=== PATIENT | female | born 1965 | race Caucasian/White ===

== ENCOUNTER 2016-08-14 17:59 | Inpatient (IN) | payer OTHER, MEDICARE ==
[~2016-08-14] VITALS: Ht 163.8 cm; Wt 68.0 kg
[~2016-08-14 17:59] MED LIST: ALPRAZOLAM0.5 M3 PO; ALPRAZOLAM1 MG PO; BACTRIM DS 8001 TAB PO; BENZTROPINE1 MG PO; CLOMIPRAMINE HC50 MG PO; CLONIDINE HCL0.1 MG PO; DIVALPROEX SOD500 MG PO; DOLOPHINE10 MG PO; GABAPENTIN300 MG PO; PROMETHAZINE HC25 M3 PO
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
--- NOTE | 2016-08-14 18:39 | NUR ---
LABS DRAWN AND SENT BY THIS [facility]ST. BLUE,SST,LAV, URINE TRIO ALSO SENT AT THIS TIME.
[2016-08-14 18:45] LABS: ABSOLUTE BASOPHIL COUNT 0.1 /CUMM (0.0-0.2); ABSOLUTE EOSINOPHIL COUNT 0.3 /CUMM (0.0-0.7); ABSOLUTE GRANULOCYTE CT 5.4 /CUMM (1.4-6.5); ABSOLUTE LYMPH COUNT 3.7 /CUMM (1.2-3.4); ABSOLUTE MONOCYTE COUNT 0.5 /CUMM (0.10-0.60); BASOPHIL % 0.6 % (0.0-2.0); EOSINOPHIL % 2.9 % (0-5); GRANULOCYTE % 54.7 % (42.2-75.2); HEMATOCRIT 42.9 % (37-47); MEAN CORPUSCULAR HGB 31.7 PG (27.0-31.0); MEAN CORPUSCULAR VOLUME 95.9 FL (81.0-99.0); PLATELET COUNT 399 /CUMM (130-400); RBC DISTRIBUTION WIDTH 13.9 % (11.5-14.5); RED BLOOD CELL CT 4.47 /CUMM (4.20-5.40); WHITE BLOOD CELL COUNT 9.9 /CUMM (4.8-10.8)
--- NOTE | 2016-08-14 19:00 | NUR ---
SEEM BY VENUS DELACRUZ
--- NOTE | 2016-08-14 19:52 | NUR ---
CRISIS IN TO SEE PT
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
--- NOTE | 2016-08-14 21:31 | NUR ---
PT INFORMED OF PLAN TO DO A BED SEARCH FOR INPATIENT CARE.
--- NOTE | 2016-08-14 21:31 | NUR ---
PT ASKING FOR SOMETHING TO HELP HER RELAX. [employer] TECH IN TO OBTAIN ACCURATE MED REC. WILL INFORM JAYME ALVAREZ OF PT REQUEST
[2016-08-14] MEDS ORDERED: DIVALPROEX SOD500 M3 PO (21:32)
[2016-08-14] MEDS ORDERED: LAMOTRIGINE25 M3 PO (21:33)
[2016-08-14] MEDS ORDERED: ALPRAZOLAM1 M2 PO (21:33)
[2016-08-14] MEDS ORDERED: SUBOXONE 8 MG-1 EACH SL (21:33)
[2016-08-14] MEDS ORDERED: CLOMIPRAMINE HC50 M1 PO (21:34)
[2016-08-14] MEDS ORDERED: ASPIRIN EC81 M1 PO (21:34)
--- NOTE | 2016-08-14 23:30 | NUR ---
PT NOTED TO BE ASLEEP ON STRETCHER. NO DISTRESS NOTED. SITTER IN PLACE. WILL CONTINUE TO MONITOR.
--- NOTE | 2016-08-15 02:53 | NUR ---
PT NOTED TO BE ASLEEP ON STRETCHER. NO DISTRESS NOTED. WILL CONTINUE TO MONITOR.
--- NOTE | 2016-08-15 05:48 | NUR ---
PT RESTING ON BED. NO DISTRESS NOTED. SITTER IN PLACE. WILL CONTINUE TO MONITOR.
--- NOTE | 2016-08-15 06:14 | NUR ---
PHARMACY CALLED FOR GISELAICTAL.
--- NOTE | 2016-08-15 06:33 | NUR ---
PT MEDICATED WITH LAMICTAL AND XANAX PER EMAR.
--- NOTE | 2016-08-15 07:21 | NUR ---
ASSUMED CARE OF PT AT THIS TIME, PT SLEEPING AT THIS TIME. REG RESP RATE NOTED. SITTER REMAINS PRESENT. WILL CTM
--- NOTE | 2016-08-15 09:24 | NUR ---
PT REQUESTING SUBOXONE, AWARE
--- NOTE | 2016-08-15 11:25 | NUR ---
ASSUMED CARE OF THIS PT FROM MONTSE SCHILLING. PT SITTING ON BED IN ROOM 15 SAYING THE IS "TERRIBLE". PT REQUESTING DAILY MEDS THAT INCLUDE SUBOXONE 8.2MG STRIPS BID, PRESCRIBED FROM DR JENNINGS, [facility], XANAX 1MG BID, DEPAKOTE 500MG QHS,LAMICTAL 25MG QHS AND ANAFRANIL 50MG QHS. PT REQUESTING SUBOXONE AND XANAX AT THIS TIME. SITTER AT DOOR.
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
--- NOTE | 2016-08-15 12:55 | NUR ---
PT ASKING THIS RN ABOUT HER SUBOXONE AND XANAX WHICH SHE TAKES DAILY AND IS REQUESTING THEM AT THIS TIME. JAYME ALVAREZ MADE AWARE, HOWEVER I LATER FOUND OUT THAT DR CARRANZA IS COVERING PATIENT. SITTER AT DOOR.
--- NOTE | 2016-08-15 14:45 | NUR ---
PT AWAKE AND ALERT IN ROOM 15 ASKING ABOUT HER MEDICATIONS. SITTER AT DOOR.
--- NOTE | 2016-08-15 15:30 | NUR ---
PT'S MOTHER CALLED TO SPEAK WITH THIS RN ABOUT WHY PT IS NOT RECEIVING HER DAILY MEDS. THIS RN WILL FOLLOW UP WITH DR CARRANZA
[2016-08-15 19:46] VITALS: BP 139/96
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
[2016-08-16 08:07] VITALS: BP 132/82
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
--- NOTE | 2016-08-16 12:01 | NUR ---
PT IS ABLE TO VERBALIZE HER FEELING TO STAFF AND PEERS. SHE IS TEARFUL AT TIMES AND REPORTS FELING DEPRESSED AND ANXIOUS. SHE DENIES SUICIDAL THOUGHTS AT THIS TIME. SHE SPOKE WITH THE PUMP ERECTOR HELPER TODAY AND MET WITH HER AIRLINE MECHANIC.SHE IS COMPLIANT WITH HER MED REGIME
[2016-08-16 12:12] VITALS: BP 132/95
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
[2016-08-16 16:06] VITALS: BP 142/92
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
--- NOTE | 2016-08-16 18:33 | NUR ---
PT IS CALM, COOPERATIVE WITH STAFF AND PEERS, AND COMPLIANT WITH UNIT RULES. OFEN IN [place]IE[place], INTERACTING WELL WITH OTHERS. MOOD IS STABLE, AFFECT APPEARS EUTHYMIC TO FULL RANGE, COMMUNICATION IS ORGANIZED AND APPEARS NORMAL IN ALL RESPECTS, AND APPETITE IS NORMAL. PT DENIES SI AT THIS TIME.
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
--- NOTE | 2016-08-16 19:46 | SOCIAL WORKER PROG NOTE PSYCH ---
Social Work Progress Note Progress Note 5:30pm Dr. Cooper and Sw met with pt. Pt reported, "I've been really anxious and depressed." Pt was engaged and spontaneous during the discussion tonight, however, was tearful at times. She discussed medications questions/concerns with Dr. Cooper. Pt stated that she has been sober (opiates) for the past two years and is being prescribed Suboxone by Dr. Sheffield. Pt identified interpersonal stressors as triggers for her depression. Sw and pt will meet tomorrow to discuss potential discharge plans as well as supports that she utilizes and would be interested in inviting to a family meeting.
[2016-08-16 19:58] VITALS: BP 141/92
[2016-08-17 07:48] VITALS: BP 135/74
[2016-08-17 12:18] VITALS: BP 125/73
--- NOTE | 2016-08-17 13:03 | NUR ---
PT IS COMPLIANT AND COOPERATIVE WITH UNIT RULES. PT IS OUT IN THE COMMUNITY INTERACTING WITH STAFF AND PEERS. PT IS ATTENDING ALL GROUPS. PT REPORTS SOME ANXIETY TODAY. PT MOOD IS STABLE WITH A FULL RANGE AFFECT. PT DENIES SI THOUGHTS.
[2016-08-17 15:49] VITALS: BP 149/75
--- NOTE | 2016-08-17 17:56 | SOCIAL WORKER PROG NOTE PSYCH ---
Social Work Progress Note Progress Note Sw met with pt. She shared that she had a "good" conversation with her boyfriend and plans to return home with him after discharge from [facility]. "I want to see if we can work it out with me on the right meds." She stated that they discussed attending 12 Step Meetings together as well as her thoughts about attending Al-Anon. She plans on attending AA tonight on [facility]. Pt identified alternatives to housing if she feels that home is not a positive environment, such as staying with her mother. She also stated that she is on the senior/ diasabled housing list. Pt denied any concerns about safety at home with her boyfriend and stated that she feels safe there. Pt reported improved mood. Preliminary d/c plans were discussed. She stated that she is not interested in returning to her most recent psychiatrist. She is currently being treated by Dr. Sheffield for Suboxone. She was not interested in IOP at this time (though willing to consider if recommended) and, if she does not attend IOP she would like to return to Dr. Sheffield's practice whom, she stated, has also started a primary care and behavioral practice. Sw will follow up with Dr. Cooper and treatment team regarding the discharge plan. Pt stated that she will discuss this further with Dr. Cooper when she meets with him.
--- NOTE | 2016-08-17 18:09 | NUR ---
PT IS CALM, COOPERATIVE WITH STAFF AND PEERS, AND COMPLIANT WITH UNIT RULES. BOTH IN AND OUT OF MILIEU, THOUGH INTERACTING WELL WITH OTHERS. MOOD IS STABLE, AFFECT APPEARS EUTHYMIC TO FULL RANGE, COMMUNICATION IS ORGANIZED AND APPEARS NORMAL IN ALL RESPECTS, AND APPETITE IS NORMAL. PT DENIES SI AT THIS TIME.
[2016-08-17 20:01] VITALS: BP 113/89
--- NOTE | 2016-08-17 20:49 | CP SOUTH PROGRESS NOTE PSYCH ---
Psych (Inpt) Progress Note Progress Note Include the following elements, when applicable: Involvement in the active treatment of the patient with behavioral observations of the patient and the patient's response to the treatment. Review of the ongoing treatment process in the context of the treatment plan. Indication of how multi-disciplinary staff members are carrying out the treatment plan. Plans for future interventions and recommendations for revision of the treatment plan. Liaison with other physicians/providers. Progress Note: PSYCHIATRIST NOTE, 08/17/2016: I discussed this patient's progress thus far, current mental status, treatment and discharge planning with staff team today in the daily morning ITTM and met with her again myself in individual session. Patient reported with considerable relief that she is feeling somewhat better today; she had slept better following the initial HS dose of doxepin, 25mg, and denied feeling hungover or overtired during the day today as had been the case when she used to take 50-100mg doxepin HS. She did take an additional 10mg of doxepin later in the night with benefit and agreed to increasing dose tonight to 35mg HS. We adjusted current doses of Suboxone, 8/2mg SL 2x/day and Ativan, 1mg 2x/day but did not increase the daily total of either medication; I will hold off on beginning taper of low dose Ativan but plan is for patient to be completely off benzodiazepines by day of discharge and going forward on an outpatient basis. We spoke about the difficulties with patient's partner who considers her to be "a drug addict" when she is taking any benzos. but who is a drinker and by report at times a problem drinker himself; we need to meet with the couple and educate around the comparability of consumption of benzodiazepines or alcohol. Patient is doing well on current 750mg/day dose of Depakote ER and will have valproic acid level drawn tomorrow AM, 08/18/2016.
[2016-08-18 07:48] VITALS: BP 131/94
[2016-08-18 12:37] VITALS: BP 135/85
--- NOTE | 2016-08-18 13:24 | NUR ---
PT IS COMPLIANT AND COOPERATIVE WITH UNIT RULES. PT IS OUT IN THE COMMUNITY INTERACTING WELL [facility] STAFF AND PEERS. PT IS ATTENDING ALL GROUPS. PT MOOD IS STABLE WITH A FULL RANGE AFFECT. PT REPROTS SOME ANXIETY THIS MORNING. PT GOAL THIS MORNING WAS TO ATTEND ALL GROUPS. PT DENIES SI THOUGHTS.
--- NOTE | 2016-08-18 15:39 | SOCIAL WORKER PROG NOTE PSYCH ---
Social Work Progress Note Progress Note Met with pt individually. Pt is in good spirits and denies SI, She reports that she is feeling much better on her new meds and sleeps better. She identified she has more vivid dreams and sometimes "hungover" when she wakes. She plans to discuss the side effect she is having with Dr. Cooper. Pt expressed that she realizes that she needs to put herself 1st rather than putting others ahead of herself. She explained that she has been dealing with a conflicted relationship with her daughter due to her daughters substance abuse. She also struggles with er boyfriend's alcoholism. "I realize I can't make him change, but I can choose to leave him." She plans to follow-up on routine health visits when discharged from [facility] such as mammograms. She also plans to transfer her out pt mental health tx to Dr. Sheffield's practice. She explains that they have mental health, suboxone, and primary care there. She explained that she prefers to do this rather than do IOP.
[2016-08-18 15:49] VITALS: BP 132/76
--- NOTE | 2016-08-18 16:25 | CP SOUTH PROGRESS NOTE PSYCH ---
Psych (Inpt) Progress Note Progress Note Include the following elements, when applicable: Involvement in the active treatment of the patient with behavioral observations of the patient and the patient's response to the treatment. Review of the ongoing treatment process in the context of the treatment plan. Indication of how multi-disciplinary staff members are carrying out the treatment plan. Plans for future interventions and recommendations for revision of the treatment plan. Liaison with other physicians/providers. Progress Note: PSYCHIATRIST NOTE, 08/18/2016: I discussed this patient's progress to date, current mental status, treatment and discharge planning with staff team today in the daily morning ITTM and also met with her again myself in individual session. Patient continues to report improvement in jitteriness, dysphoria, irritability and some lifting of mood and denied any current side effects from medication regimen. Serum valproic acid level this morning was 67.4mcg/ml; we agreed to continue the current dose of 250mg/day and repeat level in AM 08/21/2016. Patient noted sleeping better last night after taking the PRN dose of doxepin, 10mg, and denied sluggishness, fatigue or sedation during the day today; we agreed to increase the regular HS dose of doxepin from 25mg to 35mg, starting tonight. Patient also agreed to increasing current dose of Wellbutrin SR (150mg), to 200mg (as 100mg 2x/day, at 8am and noon) over the coming weekend. Patient reiterated her determination to continue her struggle against drug relapse and succumbing to her deep, anergic depressions. At some point, she might be a candidate for a trial on Latuda, but for the present she is doing better, improving daily. However, she is still at least moderately anxious; I will not taper Ativan over the coming weekend but will wait until 08/21/2016 to cut dose down/taper away Ativan.
[2016-08-18 20:05] VITALS: BP 155/93
--- NOTE | 2016-08-18 21:18 | NUR ---
Pt is out in the comunity mood is stable affect is in full range. Pt is compkliant and cooperative with the staff. Pt interacts very well with her peers. Pt vital signs are stable appetite is good. Will continue to monitor the pt overnight.
[2016-08-19 07:41] VITALS: BP 125/83
--- NOTE | 2016-08-19 07:47 | NUR ---
PATIENT SLEPT ALL NIGHT.
--- NOTE | 2016-08-19 11:30 | CP SOUTH PROGRESS NOTE PSYCH ---
Psych (Inpt) Progress Note Progress Note Include the following elements, when applicable: Involvement in the active treatment of the patient with behavioral observations of the patient and the patient's response to the treatment. Review of the ongoing treatment process in the context of the treatment plan. Indication of how multi-disciplinary staff members are carrying out the treatment plan. Plans for future interventions and recommendations for revision of the treatment plan. Liaison with other physicians/providers. Progress Note: Notes reviewed, d/w nursing staff. Met with patient this morning. Very pleasant, reports "I feel a whole lot better", says that she feels her current dose of doxepin was helpful despite a very restless unit last evening. Denies SI/HI, denies depressed mood or significant anxiety. denies med side effects. Vitals reviewed and within normal limits. No new labs today. MSE: well-appearing CF dressed appropriately, cooperative with interview, good eye contact, speech wnl. Mood "fine", affect euthymic, non-labile. TP log/indigo, content wnl. Denies SI/HI, denies AVH. Cognition grossly intact. I/J good. A/P: Mood and sleep stabilizing, tolerating med regimen well. Continue present management as per primary team.
[2016-08-19 12:08] VITALS: BP 133/73
--- NOTE | 2016-08-19 12:09 | NUR ---
PT STATED HER GOAL WAS TO STAY POSITIVE TODAY AND NOT GET INTO NEGATIVE PATTERN OF THINKING. SHE DENIES ANY THOUGHTS OF SUICIDE OR SELF HARM. SHE IS COMPLIANT WITH HER MED REGIME AND ATTENDS GROUPS. INTERACTS WITH STAFF AND PEERS IN A FRIENDLY APPROPRIATE MANNER
[2016-08-19 16:03] VITALS: BP 110/78
--- NOTE | 2016-08-19 18:35 | NUR ---
PT ID CALM, COOPERATIVE WITH STAFF AND PEERS, AND COMPLIANT WITH UNIT RULES. OFTEN IN [place], PT IS INTERACTING WELL WITH OTHERS. MOOD IS STABLE, AFFECT APPEARS EUTHYMIC TO FULL RANGE, COMMUNICATION IS ORGANIZED AND APPEARS NORMAL IN ALL RESPECTS, AND APPETITE IS NORMAL. PT DENIES SI AT THIS TIME.
[2016-08-19 19:48] VITALS: BP 148/82
--- NOTE | 2016-08-20 06:51 | NUR ---
PATIENT SLEPT MOST OF THE NIGHT, WAS UP TO BR X2, RESTLESS, GIVEN EXTRA DOXEPIN 10MG AT 2338.
[2016-08-20 07:54] VITALS: BP 102/72
--- NOTE | 2016-08-20 11:39 | NUR ---
PT VISIBLE IN THE [place] THROUGHOUT THE DAY. HER GOAL TODAY WAS FOCUS ON SELF, GROUPS AND SOCIALIZE. SHE HAS BEEN GOING TO GROUPS, AND ACTIVELY PARTICIPATING IN THEM. HER INTERACTIONS WITH HER PEERS HAVE BEEN APPROPRIATE. SHE DENIES THOUGHTS TO HURT HERSELF WHEN ASKED.
[2016-08-20 12:18] VITALS: BP 113/76
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
--- NOTE | 2016-08-20 15:50 | NUR ---
Patient is A&O X 3, compliant and cooperative with medication and group therapies. Patient is present in the community interacts with other peers and staff members. Mood is stable with appropriate affect, vital sign is stable and within acceptable limit. Patient has just reported dry mouth which she started might be as a result of medication side effect. The psychiatrist has been called for an order of mouth moisturizing spray. At this time patient continues to deny any thought of self-harm or to someone else.
[2016-08-20 15:58] VITALS: BP 125/76
--- NOTE | 2016-08-20 17:54 | NUR ---
PT IS CALM, COOPERATIVE WITH STAFF AND PEERS, AND COMPLIANT WITH UNIT RULES. OFTEN IN [place], PT IS INTERACTING WELL WITH OTHERS. MOOD IS STABLE, AFFECT APPEARS EUTHYMIC TO FULL RANGE, COMMUNICATION IS ORGANIZED AND APPEARS NORMAL IN ALL RESPECTS, AND APPETITE IS NORMAL. PT DENIES SI AT THIS TIME.
[2016-08-20 19:51] VITALS: BP 152/55
[2016-08-21 08:07] VITALS: BP 136/61
[2016-08-21 12:31] VITALS: BP 108/82
--- NOTE | 2016-08-21 12:58 | NUR ---
PT IS COMPLIANT AND COOPERATIVE WITH UNIT RULES. PT IS OUT IN THE COMMUNITY ITNERACTING WELL WITH STAFF AND PEERS. PT MOOD IS STABLE WITH A FULL RANGE AFFECT. PT HAS A FAMILY MEETING [facility] FOR 1400 AND IS A POSSIBLE DISCHARGE AFTER. PT DENIES SI THOUGHTS.
[2016-08-21] MEDS ORDERED: WELLBUTRIN SR100 M2 PO (14:48)
[2016-08-21] MEDS ORDERED: DOXEPIN HCL25 MG PO (14:48)
[2016-08-21] MEDS ORDERED: DOXEPIN HCL10 MG PO (14:48)
[2016-08-21] MEDS ORDERED: DEPAKOTE ER250 M1 PO (14:48)
--- NOTE | 2016-08-21 14:49 | NUR ---
PT SCHEDULED FOR DISCHARGE AFTER FAMILY MEETING, VERBALIZING + INSIGHT/TRIGGERS/COPING AND UNDERSTANDING OF MEDICATION REGIMENT AND NEED FOR. PT ALSO HAS + UNDERSTANDING AND MOTIVATION RE: FOLLOW-UP DISCHARGE INSTRUCTIONS AND CARE, FUTURE ORIENTED, CALM, PLEASANT, COOPERATIVE, COMPLAINT. WHEN ASKED DIRECTLY DENIES SI/HI/HALLUCINATIONS AND NO EVIDENCE OF. W-10 & PT RESOURCE GUIDE REVIEWED AND INFORMATION PACKETS RE: BIPOLAR AND SI GIVEN WELL. REPORTS OVERALL IMPROVEMENT IN MOOD/MENTAL STATUS/BEHAVIOR AND FEELS SAFE AND STABLE. IS APPROPRIATE WITH PEERS AND STAFF, MOOD STABLE WITH FULL RANGE AFFECT.
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
--- NOTE | 2016-08-21 17:39 | SOCIAL WORKER PROG NOTE PSYCH ---
Social Work Progress Note Progress Note 2:15pm This remote mortgage underwriter and Dr. Cooper met with pt and her boyfriend. Pt and her boyfriend discussed strategies to improve communication. This remote mortgage underwriter was unable to reach pt's outpatient provider (Dr. Palmer) due to the holiday. Pt was future oriented with plans to spend the holiday with her boyfriend fishing. She stated that she has an appointment with Dr. Dionicio Palmer on 08/23/16 at 10:30am. She stated that she will pursue outpt treatment through [facility], [facility] and will call them on 08/23/16 to schedule the appointment. Pt and this remote mortgage underwriter left a vm for [facility] with both this remote mortgage underwriter and pt's call back numbers. Pt was not interested in pursuing other outpt MH treatment including [facility]. She was informed that she could contact [facility] if she changes her mind. Pt denied SI/HI.
== END 2016-08-21 15:15 | DRG 885 ==
LOC: ERH 17:59 → CP SOUTH 08-15 12:07 → ERHI 08-15 12:07 → ENTRNSPT 08-15 17:41 → EDTRNSPTSTS 08-15 17:54 → CP SOUTH 08-15 17:58 → CMPTRNSPT 08-15 20:08 → CP SOUTH 08-16 20:02
PROVIDERS: Physician Assistant Medical; ADMIT Psychiatry & Neurology Addiction Medicine
DX: F31.60 Bipolar disorder, current episode mixed, unspecified (principal); F11.20 Opioid dependence, uncomplicated; F13.239 Sedative, hypnotic or anxiolytic dependence with withdrawal, unspecified; I25.10 Atherosclerotic heart disease of native coronary artery without angina pectoris; Z95.1 Presence of aortocoronary bypass graft; F10.21 Alcohol dependence, in remission; F14.21 Cocaine dependence, in remission
CPT/HCPCS: 36415; 80307; G0463; G0480; J3490